=== PATIENT | male | born 1955 ===

== ENCOUNTER 2024-05-30 05:00 | Inpatient (IN) | payer OTHER ==
[2024-05-23 09:19] LABS: HEMATOCRIT 40.5 % (39.0-48.0); HEMOGLOBIN 13.7 g/dL (13-16.00); MEAN CELL VOLUME 87.7 fL (80.0-100.00); MEAN CORPUSCULAR HEMOGLOBIN 29.6 pg (27.00-32.0); MEAN CORPUSCULAR HGB CONC 33.8 g/dl (32.0-36.0); PLATELET COUNT 236 K/uL (150-450); RED BLOOD COUNT 4.62 M/uL (4.00-6.00); RED CELL DISTRIBUTION WIDTH 14.2 % (11.5-14.5)
[2024-05-23 09:33] VITALS: BP 165/83
[2024-05-23 09:36] LABS: URINE APPEARANCE Clear; URINE BILIRRUBIN Negative (NEGATIVE); URINE BLOOD Negative; URINE COLOR Yellow; URINE GLUCOSE Negative (NEGATIVE); URINE KETONE Negative (NEGATIVE); URINE LEUKOCYTE Negative; URINE NITRATE Negative; URINE PROTEIN Negative (NEGATIVE); URINE UROBILINOGEN 0.2 E.U./dl
[2024-05-23 09:37] LABS: URINE RBC 5.5 uL (0.0-20.8)
[2024-05-23 09:42] LABS: INR < 0.93; PARTIAL THROMBOPLASTIN TIME 28.2 SECONDS (22.0-34.0); PROTHROMBIN TIME 10.2 SECONDS (9.0-11.5)
[2024-05-23 09:51] LABS: RH POSITIVE
[2024-05-23 10:02] LABS: CALCIUM 8.8 mg/dL (8.5-10.1); CREATININE SERUM 0.79 mg/dL (0.70-1.30); GFR 97.25; POTASSIUM 4.03 mEq/L (3.5-5.1)
[2024-05-23 10:05] LABS: URINE EPITHELIAL CELLS 0.1 uL (0.0-38.8); URINE WBC 0.4 uL (0.0-23.2)
[2024-05-23 10:06] LABS: URINE BACTERIA 1.2 uL (0.0-1933)
[~2024-05-30] VITALS: Ht 58.4 cm; Wt 88.9 kg
[~2024-05-30 05:00] MED LIST: AVAPRO300 MG PO; GLUMETZA500 MG PO; NIFEDIPINE20 MG; PROAIR RESPICL90 MCG IH; SINGULAIR4 MG; SYMBICORT 16010.2 GM; ZYLOPRIM100 M1 PO
[2024-05-30] MEDS ORDERED: ENOXAPARIN SODIUM 40 MG/0.4 ML SYRINGE SUBCUTANEO ONE (08:45)
[2024-05-30] MEDS ORDERED: BUPIVACAINE HCL 30 ML VIAL IJ ONE (08:45)
[2024-05-30] MEDS ORDERED: CEFAZOLIN SODIUM 1,000 MG in 0.9 % SODIUM CHLORIDE 50 ML IV ONE (08:45)
[2024-05-30] MEDS ORDERED: CHLORHEXIDINE GLUCONATE 120 ML BOTTLE TP ONE (08:45)
[2024-05-30] MEDS ORDERED: SUGAMMADEX SODIUM 200 MG/2 ML VIAL IV ONE ×2 (14:15→15:30)
[2024-05-30] MEDS ORDERED: DEXTROSE 5 %-0.45 % SOD CHLORD 1,000 ML IV SCH (14:48)
[2024-05-30] MEDS ORDERED: OxyCODONE HCL/APAP UD (PERCOCET) PO PRN (15:00)
[2024-05-30] MEDS ORDERED: ONDANSETRON HCL 2 MG/ML VIAL IV PRN (15:00)
[2024-05-30] MEDS ORDERED: CEFAZOLIN SODIUM 1,000 MG VIAL IV SCH (17:00)
[2024-05-30] MEDS ORDERED: SIMETHICONE 125 MG CAPSULE PO SCH (17:00)
[2024-05-30] MEDS ORDERED: DOCUSATE SODIUM 100MG CAP PO SCH (17:00)
[2024-05-30] MEDS ORDERED: FAMOtidine 20 MG TABLET PO SCH (17:00)
[2024-05-30 20:00] VITALS: BP 173/86; O2SAT 95
[2024-05-31 00:45] VITALS: BP 136/81; O2SAT 96
[2024-05-31 07:49] LABS: CALCIUM 7.9 mg/dL (8.5-10.1); CREATININE SERUM 1.03 mg/dL (0.70-1.30); GFR 71.6; POTASSIUM 4.59 mEq/L (3.5-5.1)
[2024-05-31 08:16] LABS: HEMATOCRIT 35.9 % (39.0-48.0); HEMOGLOBIN 12.2 g/dL (13-16.00); MEAN CELL VOLUME 87.3 fL (80.0-100.00); MEAN CORPUSCULAR HEMOGLOBIN 29.6 pg (27.00-32.0); MEAN CORPUSCULAR HGB CONC 33.9 g/dl (32.0-36.0); PLATELET COUNT 208 K/uL (150-450); RED BLOOD COUNT 4.11 M/uL (4.00-6.00); RED CELL DISTRIBUTION WIDTH 13.6 % (11.5-14.5)
[2024-05-31 09:10] VITALS: BP 145/73; O2SAT 98
== END 2024-05-31 15:06 | disposition home or self-care (01) | DRG 708 ==
LOC: CIR.AMB 05:00 → SURG 10:00 → EDSTATUS 10:00 → O/R 15:33 → SURH 15:53
PROVIDERS: ADMIT Urology; ATTEND Urology
PROC: 8E0W4CZ Robotic Assisted Procedure of Trunk Region, Percutaneous Endoscopic Approach (ICD-10-PCS; 2024-05-30)
PROC: 0VT04ZZ Resection of Prostate, Percutaneous Endoscopic Approach (ICD-10-PCS; principal; 2024-05-30 07:00)
DX: C61 Malignant neoplasm of prostate (principal)
CPT/HCPCS: 55866; S2900